=== PATIENT | female | born 1965 | race Caucasian/White ===

== ENCOUNTER 2016-10-16 13:18 | Emergency (ER) | payer OTHER ==
[2016-10-16 14:00] VITALS: BP 126/56
--- NOTE | 2016-10-16 14:20 | UC ---
UC General HPI - HPI Summary HPI Summary: increased frequency of urination, fullness, thinks she is getting a UTI - History of Current Complaint Chief Complaint: UCGU Stated Complaint: URINARY COMPLAINT Time Seen by Provider: 10/16/16 13:53 Hx Obtained From: Patient Onset/Duration: Sudden Onset, Lasting Days Timing: Constant Onset Severity: Moderate Current Severity: Moderate Pain Intensity: 6 Associated Signs & Symptoms: Positive: Abdominal Pain - lower - Allergy/Home Medications Allergies/Adverse Reactions: Allergies Allergy/AdvReac Type Severity Reaction Status Date / Time Cats Allergy Difficulty Uncoded 10/16/16 13:54 Breathing/Wheezing Home Medications: Home Medications Albuterol HFA INHALER* [Ventolin HFA Inhaler*] 1 - 2 puff INH Q4H PRN 10/16/16 [ History Confirmed 10/16/16] Allergy Shots 2 inj SUBCUT SEE INSTRUCTIONS 10/16/16 [History Confirmed 10/16/16 ] Cholecalciferol TAB* [Vitamin D TAB*] 6,000 units PO DAILY 10/16/16 [History Confirmed 10/16/16] Loratadine & Pseudoephedrine [Claritin-D 24 Hour 10-240 mg] 1 tab PO DAILY 10/16 [History Confirmed 10/16/16] Multivitamins/Minerals TAB* [Thera M Plus TAB*] 1 tab PO DAILY 10/16/16 [ History Confirmed 10/16/16] Joy-3 Fatty Acids [Fish Oil] 1,000 mg PO DAILY 10/16/16 [History Confirmed 12/28] PMH/Surg Hx/FS Hx/Imm Hx Previously Healthy: Yes Endocrine History Of: Denies: Diabetes, Thyroid Disease Cardiovascular History Of: Denies: Cardiac Disorders, Hypertension Respiratory History Of: Reports: Asthma, Bronchitis Denies: COPD GI/ History Of: Denies: Ulcer Cancer History Of: Denies: Breast Cancer - Surgical History Surgical History: Yes Surgery Procedure, Year, and Place: Right ACL, ~2002, [place] - Family History Known Family History: Positive: None, Unknown - PT ADOPTED-UNAWARE OF HER FHx - Social History Alcohol Use: Weekly Substance Use Type: None Smoking Status (MU): Never Smoked Tobacco - Immunization History Most Recent Influenza Vaccination: Not the Season Review of Systems Constitutional: Negative Skin: Negative Eyes: Negative ENT: Negative Respiratory: Negative Cardiovascular: Negative Gastrointestinal: Abdominal Pain Genitourinary: Frequency Motor: Negative Neurovascular: Negative Musculoskeletal: Negative Neurological: Negative Psychological: Negative All Other Systems Reviewed And Are Negative: Yes Physical Exam Triage Information Reviewed: Yes Appearance: Well-Appearing, Well-Nourished, Pain Distress Vital Signs: Initial Vital Signs Temp 98.1 F 10/16/16 13:47 Pulse 70 10/16/16 13:47 Resp 16 10/16/16 13:47 BP 126/56 10/16/16 13:47 Pulse Ox 100 10/16/16 13:47 Vital Signs Reviewed: Yes Eye Exam: Normal Eyes: Positive: Conjunctiva Clear ENT Exam: Normal ENT: Positive: Normal ENT inspection, Hearing grossly normal, Pharynx normal, TMs normal Dental Exam: Normal Neck exam: Normal Neck: Positive: Supple, Nontender, No Lymphadenopathy Respiratory Exam: Normal Respiratory: Positive: Chest non-tender, Lungs clear, Normal breath sounds Cardiovascular Exam: Normal - lower abdominal tenderness with palpation, neg CVA tenderness Bowel Sounds: Positive: Present Musculoskeletal Exam: Normal Musculoskeletal: Positive: Strength Intact, ROM Intact Neurological Exam: Normal Neurological: Positive: Alert, Muscle Tone Normal Psychological Exam: Normal Skin Exam: Normal Course/Dx - Course Course Of Treatment: hx obtianed, exam performed, UA po for leuks, treated with bactirm - Differential Dx - Multi-Symptom Provider Diagnoses: UTI Discharge - Discharge Plan Condition: Stable Disposition: HOME Patient Education Materials: Urinary Tract Infection in Women (ED) Additional Instructions: Continue pushing fluids, Take the medication as directed.
== END 2016-10-16 14:41 | disposition home or self-care (01) ==
LOC: UCCORT 13:18
DX: N39.0 Urinary tract infection, site not specified (principal); J45.909 Unspecified asthma, uncomplicated; Z91.09 Other allergy status, other than to drugs and biological substances
CPT/HCPCS: 87086; 99212; G0463

== ENCOUNTER 2016-11-28 08:33 | Emergency (ER) | payer OTHER ==
[2016-11-28 09:18] VITALS: BP 126/72
--- NOTE | 2016-11-28 09:32 | UC ---
Complaint Female HPI - HPI Summary HPI Summary: complaint of pain with urination that started approx 4 days ago limited stream of urine feels some mild discomfort in her suprapubic area increased frequency and urgency denies fever and back pain not taking any medications for pain - History Of Current Complaint Chief Complaint: UCGU Stated Complaint: UTI Time Seen by Provider: 11/28/16 09:29 Hx Obtained From: Patient Hx Last Menstrual Period: 02/2016 - Allergies/Home Medications Allergies/Adverse Reactions: Allergies Allergy/AdvReac Type Severity Reaction Status Date / Time Cats Allergy Difficulty Uncoded 10/16/16 13:54 Breathing/Wheezing PMH/Surg Hx/FS Hx/Imm Hx Previously Healthy: Yes Endocrine History Of: Denies: Diabetes, Thyroid Disease Cardiovascular History Of: Denies: Cardiac Disorders, Hypertension Respiratory History Of: Reports: Asthma, Bronchitis Denies: COPD GI/ History Of: Denies: Ulcer Cancer History Of: Denies: Breast Cancer - Surgical History Surgical History: Yes Surgery Procedure, Year, and Place: Right ACL, ~2002, [place], mid 20's - Family History Known Family History: Positive: None, Unknown - PT ADOPTED-UNAWARE OF HER FHx Negative: Cardiac Disease, Hypertension, Diabetes - Social History Occupation: Employed Full-time Lives: With Family Alcohol Use: Occasionally Substance Use Type: None Smoking Status (MU): Never Smoked Tobacco - Immunization History Most Recent Influenza Vaccination: Not the Season Review of Systems Constitutional: Negative Skin: Negative Eyes: Negative ENT: Negative Respiratory: Negative Cardiovascular: Negative Gastrointestinal: Negative Genitourinary: Dysuria Motor: Negative Neurovascular: Negative Musculoskeletal: Negative Neurological: Negative Psychological: Negative All Other Systems Reviewed And Are Negative: Yes Physical Exam Triage Information Reviewed: Yes Appearance: No Pain Distress, Well-Nourished Vital Signs: Initial Vital Signs Temp 97.7 F 11/28/16 08:55 Pulse 72 11/28/16 08:55 Resp 16 11/28/16 08:55 BP 126/72 11/28/16 08:55 Pulse Ox 98 11/28/16 08:55 Vital Signs Reviewed: Yes Eyes: Positive: Conjunctiva Clear Neck: Positive: No Lymphadenopathy Respiratory: Positive: Lungs clear, Normal breath sounds, No respiratory distress, No accessory muscle use Cardiovascular: Positive: RRR, No Murmur, Pulses Normal, Brisk Capillary Refill Abdomen Description: Positive: Nontender, No Organomegaly, Soft. Negative: CVA Tenderness (R), CVA Tenderness (L), Distended, Guarding Bowel Sounds: Positive: Present Musculoskeletal: Positive: No Edema Neurological: Positive: Alert Psychological Exam: Normal Skin Exam: Normal Complaint Female Dx - Course Course Of Treatment: exam completed,UA postivie for leukocytes and trace blood. will treat with macrobid and pyridium - Differential Dx/Diagnosis Differential Diagnosis/HQI/PQRI: Urinary Tract Infection Provider Diagnoses: UTI Discharge - Discharge Plan Condition: Stable Disposition: HOME Prescriptions: Nitrofurantoin Monohyd Macro [Macrobid] 100 mg PO BID #10 cap Patient Education Materials: Urinary Tract Infection in Women (ED) Referrals: Idalia Torres MD [Primary Care Provider] - Additional Instructions: Your blood pressure is pre-hypertensive reading. Please contact your primary care provider within 1 day -4 weeks for further evaluation. Please take antibiotic as directed Increase fluids and rest Take acetaminophen or ibuprofen for fever or pain Please review your discharge instructions. If your symptoms do not improve please call your primary care provider or return to urgent care.
== END 2016-11-28 09:52 | disposition home or self-care (01) ==
LOC: UCEAST 08:33
DX: N39.0 Urinary tract infection, site not specified (principal); J45.909 Unspecified asthma, uncomplicated; Z87.09 Personal history of other diseases of the respiratory system
CPT/HCPCS: 81003; 99212; G0463

== ENCOUNTER 2019-07-22 15:38 | Emergency (ER) | payer OTHER ==
--- NOTE | 2019-07-22 15:45 | UC ---
Respiratory Complaint HPI - HPI Summary HPI Summary: 53 yo female presents with cough. She tells me that she has a history of asthma and over the last 2-3 months they have been remodeling their house. Over the last week there has been increase dust and particles in the air at home and she has been coughing more. Over the last 3-4 days has been using her albuterol inhaler more often, which does help, but only for a short time. Yesterday she felt feverish, but did not take her temperature. She denies sinus symptoms, sore throat, SOB, abdominal pain, n/v. - History of Current Complaint Stated Complaint: cough Time Seen by Provider: 07/22/19 15:45 Hx Obtained From: Patient Hx Last Menstrual Period: 02/2016 Onset/Duration: Gradual Onset Severity Initially: Mild Severity Currently: Moderate Pain Intensity: 5 Pain Scale Used: 0-10 Numeric Character: Cough: Nonproductive - Allergies/Home Medications Allergies/Adverse Reactions: Allergies Allergy/AdvReac Type Severity Reaction Status Date / Time bacitracin Allergy Rash Verified 07/22/19 16:02 [From Neosporin Plus] lidocaine Allergy Rash Verified 07/22/19 16:02 [From Neosporin Plus] neomycin Allergy Rash Verified 07/22/19 16:02 [From Neosporin Plus] polymyxin B Allergy Rash Verified 07/22/19 16:02 [From Neosporin Plus] pramoxine Allergy Rash Verified 07/22/19 16:02 [From Neosporin Plus] Cats Allergy Difficulty Uncoded 07/22/19 16:02 Breathing/Wheezing environmental Allergy Difficulty Uncoded 07/22/19 16:02 Breathing Home Medications: Home Medications D-Methorphan/PE/Acetaminophen [Tylenol Cold M-S Daytime Liq] 1 dose PO ONCE PRN 07/22/19 [History Confirmed 07/22/19] Dm/PE/Acetaminophen/Doxylamine [Tylenol Cold Max Night Liquid] 1 dose PO ONCE PRN 07/22/19 [History Confirmed 07/22/19] PMH/Surg Hx/FS Hx/Imm Hx Respiratory History: Asthma - Surgical History Surgical History: Yes Surgery Procedure, Year, and Place: Right ACL, ~2002, [place]. HYSTERECTOMY 06/14 [facility] - Family History Known Family History: Positive: Unknown - PT ADOPTED-UNAWARE OF HER FHx Negative: Cardiac Disease, Hypertension, Diabetes - Social History Lives: With Family Alcohol Use: Occasionally Substance Use Type: None Smoking Status (MU): Never Smoked Tobacco - Immunization History Most Recent Influenza Vaccination: Not the 2015/2016 Season Review of Systems All Other Systems Reviewed And Are Negative: No Constitutional: Positive: Negative Skin: Positive: Negative Eyes: Positive: Negative ENT: Positive: Negative Respiratory: Positive: Cough Cardiovascular: Positive: Negative Gastrointestinal: Positive: Negative Neurological: Positive: Negative Psychological: Positive: Negative Physical Exam - Summary Physical Exam Summary: GENERAL: NAD. WDWN. No pain distress. SKIN: No rashes, sores, lesions, or open wounds. HEENT: Head: AT/NC Eyes: Conjunctiva clear without inflammation or discharge. Ears: Hearing grossly normal. TMs intact, no bulging, erythema, or edema. Nose: Nasal mucosa pink and moist. NTTP maxillary and frontal sinus. Throat: Posterior oropharynx without exudates, erythema, or tonsillar enlargement. Uvula midline. NECK: Supple. Nontender. No lymphadenopathy. CHEST: Mild wheezing lung bases. No r/r. No accessory muscle use. Breathing comfortably and in no distress. CV: RRR. Pulses intact. Cap refill <2seconds NEURO: Alert. PSYCH: Age appropriate behavior. Triage Information Reviewed: Yes Vital Signs: Vital Signs: Temp Pulse Resp BP Pulse Ox 98.7 F 102 18 142/77 96 07/22/19 15:53 07/22/19 15:53 07/22/19 15:53 07/22/19 15:53 07/22/19 15:53 Vital Signs Reviewed: Yes Diagnostics - Radiology CXR Radiology Interpretation Completed By: Radiologist Summary of Radiographic Findings: IMPRESSION: POSSIBLE LEFT UPPER LOBE INFILTRATE AT CONSISTENT WITH PNEUMONIA. A FOLLOW-UP CHEST X-RAY ACQUIRED AFTER AN APPROPRIATE COURSE OF THERAPY IS RECOMMENDED TO ASCERTAIN RESOLUTION. Respiratory Course/Dx - Course Course Of Treatment: CXR as above. In the clinic pt was given a duoneb treatment with mild improvement of her cough. Lung sounds improved, but still with wheezing left lung. Discussed XR results. Will treat with zpak and prednisone and have her f/u with her PCP for recheck to insure resolution. - Differential Dx/Diagnosis Provider Diagnosis: Pneumonia Discharge ED - Sign-Out/Discharge Documenting (check all that apply): Patient Departure All imaging exams completed and their final reports reviewed: Yes - Discharge Plan Condition: Stable Disposition: HOME Prescriptions: Albuterol HFA INHALER* [Ventolin HFA Inhaler*] 1 puff INH Q6H PRN #1 mdi PRN Reason: Sob/Wheezing Azithromycin TAB* [Zithromax TAB (Z-CHLOÉ) 250 mg #6 tabs] 2 tab PO .TODAY, THEN 1 DAILY #1 chloé Benzonatate CAP* [Tessalon 100 MG CAP*] 100 mg PO TID PRN #21 cap PRN Reason: Cough predniSONE [Prednisone 20 MG TAB] 40 mg PO DAILY #10 tablet Patient Education Materials: Pneumonia (ED) Referrals: Idalia Torres MD [Primary Care Provider] - Additional Instructions: If you develop a fever, shortness of breath, chest pain, new or worsening symptoms - please call your PCP or go to the ED immediately. I recommend that you schedule an appointment in 3-4 weeks with your primary doctor to make sure your pneumonia has resolved on x-ray - Billing Disposition and Condition Condition: STABLE Disposition: Home
[2019-07-22] MEDS ORDERED: Albuterol/Ipratropium NEB.SOL* Albuterol 2.5 MG/Ipratropium 0.5 MG 3 ML INH ONE (15:53)
[2019-07-22 16:04] VITALS: BP 142/77
== END 2019-07-22 17:09 | disposition home or self-care (01) ==
LOC: UCEAST 15:38
DX: J18.9 Pneumonia, unspecified organism (principal); J45.909 Unspecified asthma, uncomplicated; Z88.1 Allergy status to other antibiotic agents; Z91.09 Other allergy status, other than to drugs and biological substances
CPT/HCPCS: 71046; 99212; A9270-GY; G0463

== ENCOUNTER 2019-08-09 17:21 | Emergency (ER) | payer OTHER ==
[2019-08-09 17:32] VITALS: BP 132/55
--- NOTE | 2019-08-09 17:32 | UC ---
Respiratory Complaint HPI - HPI Summary HPI Summary: 53 yo female presents with cough. I saw her on 07/22 and CXR demonstrated PNA. She was treated with zpak and prednisone and advised to keep using her albuterol inhaler. She is here today in follow up for her CXR instead of going to her PCP. She is feeling better overall but is still having cough and using her inhalers more frequently (about 2 puffs every 3 hours) due to subjective chest tightness and wheezing - usually due to environmental factors such as being around cats or outdoors. She reports feeling fatigued, but better than before. Denies fever, chills, chest pain, SOB, n/v. - History of Current Complaint Chief Complaint: UCGeneralIllness Stated Complaint: cough, AND CHEST CONGESTION Time Seen by Provider: 08/09/19 17:32 Hx Obtained From: Patient Hx Last Menstrual Period: post menopause Onset/Duration: Gradual Onset Severity Initially: Moderate Severity Currently: Mild Pain Intensity: 3 Pain Scale Used: 0-10 Numeric - Allergies/Home Medications Allergies/Adverse Reactions: Allergies Allergy/AdvReac Type Severity Reaction Status Date / Time bacitracin Allergy Rash Verified 08/09/19 17:33 [From Neosporin Plus] lidocaine Allergy Rash Verified 08/09/19 17:33 [From Neosporin Plus] neomycin Allergy Rash Verified 08/09/19 17:33 [From Neosporin Plus] polymyxin B Allergy Rash Verified 08/09/19 17:33 [From Neosporin Plus] pramoxine Allergy Rash Verified 08/09/19 17:33 [From Neosporin Plus] Cats Allergy Difficulty Uncoded 07/22/19 16:02 Breathing/Wheezing environmental Allergy Difficulty Uncoded 07/22/19 16:02 Breathing PMH/Surg Hx/FS Hx/Imm Hx Respiratory History: Asthma - Surgical History Surgical History: Yes Surgery Procedure, Year, and Place: Right ACL, ~2002, [place]. HYSTERECTOMY 06/14 [facility] - Family History Known Family History: Positive: Unknown - PT ADOPTED-UNAWARE OF HER FHx Negative: Cardiac Disease, Hypertension, Diabetes - Social History Lives: With Family Alcohol Use: Occasionally Substance Use Type: None Smoking Status (MU): Never Smoked Tobacco - Immunization History Most Recent Influenza Vaccination: Not the 2016/2016 Season Review of Systems All Other Systems Reviewed And Are Negative: No Constitutional: Positive: Fatigue Skin: Positive: Negative Eyes: Positive: Negative ENT: Positive: Negative Respiratory: Positive: Cough Cardiovascular: Positive: Negative Gastrointestinal: Positive: Negative Neurological: Positive: Negative Psychological: Positive: Negative Physical Exam - Summary Physical Exam Summary: GENERAL: NAD. WDWN. No pain distress. SKIN: No rashes, sores, or open wounds. HEENT: Head: AT/NC Eyes: PERRLA. EOM intact. Conjunctiva clear without inflammation or discharge. Ears: Hearing grossly normal. TMs intact, no bulging, erythema, or edema. Nose: Nasal mucosa pink and moist. NTTP maxillary and frontal sinus. Throat: Posterior oropharynx without exudates, erythema, or tonsillar enlargement. Uvula midline. NECK: Supple. Nontender. No lymphadenopathy. CHEST: CTAB. No r/r/w. No accessory muscle use. Breathing comfortably and in no distress. CV: RRR. Pulses intact. Brisk cap refill. NEURO: Alert. PSYCH: Age appropriate behavior. Triage Information Reviewed: Yes Vital Signs: Initial Vital Signs Temp 97.2 F 08/09/19 17:25 Pulse 85 08/09/19 17:25 Resp 16 08/09/19 17:25 BP 132/55 08/09/19 17:25 Pulse Ox 100 08/09/19 17:25 Vital Signs Reviewed: Yes Diagnostics - Radiology CXR Radiology Interpretation Completed By: Radiologist Summary of Radiographic Findings: FINDINGS: The heart and mediastinum are normal in size and contour. The patchy infiltrate seen in the left upper lobe and the previous chest x-ray appears to have resolved. The lungs appear to be grossly clear. Visualized bones are normal for the patient's age. There is no radiographic evidence of free air beneath the diaphragm IMPRESSION: No radiographic evidence of acute cardiopulmonary disease. Respiratory Course/Dx - Course Course Of Treatment: CXR as above. Suspect lingering cough and fatigue due to PNA which has improved/resolved. Given her hx of asthma and environmental allergies will rx for prednisone for a 1 week taper in hopes that she will not need to use her inhaler as frequently and prescribe cough syrup. - Differential Dx/Diagnosis Provider Diagnosis: Cough Discharge ED - Sign-Out/Discharge Documenting (check all that apply): Patient Departure All imaging exams completed and their final reports reviewed: Yes - Discharge Plan Condition: Stable Disposition: HOME Prescriptions: Codeine Phosphate/Guaifenesin [Guaifen-Codeine 100-10 mg/5 ml] 5 ml PO TID PRN # 75 ml MDD 15ml PRN Reason: Cough predniSONE TAB* [Deltasone 20 MG TAB*] 20 mg PO DAILY #15 tab Patient Education Materials: Acute Cough (ED) Referrals: Idalia Torres MD [Primary Care Provider] - Additional Instructions: The repeat chest x-ray today shows that the pneumonia has resolved. I suspect your tiredness and cough now are due to residual inflammation and general recovery period from pneumonia. This should improve with time. Take the steroids as prescribed and continue to use your inhalers as prescribed. - Billing Disposition and Condition Condition: STABLE Disposition: Home
== END 2019-08-09 18:41 | disposition home or self-care (01) ==
LOC: UCEAST 17:21
DX: R05 Cough (principal); J45.909 Unspecified asthma, uncomplicated; R53.83 Other fatigue; Z88.1 Allergy status to other antibiotic agents; Z88.8 Allergy status to other drugs, medicaments and biological substances; Z88.4 Allergy status to anesthetic agent; Z91.09 Other allergy status, other than to drugs and biological substances
CPT/HCPCS: 71046; 99212; G0463